=== PATIENT | female | born 1930 | race Caucasian/White ===

== ENCOUNTER 2016-09-23 07:58 | Inpatient (IN) | payer MEDICARE, OTHER ==
[~2016-09-23] VITALS: Ht 162.6 cm; Wt 67.8 kg
[2016-09-23] VITALS (16 sets, daily range): BP systolic 136–180; BP diastolic 63–96; PULSE 62–81; RESP 15–26; O2SAT 94–97
--- NOTE | 2016-09-23 07:55 | ED.REPORT ---
HPI-Chest Pain 40 and Over Date of Service Sep 23, 2016 ED Provider: Dr. Cao An 86 year old female with a history of PR, HTN and atrial fibrillation presents to the ED via EMS complaining of chest pain onset earlier this morning. Per EMS, the patient has had chest pain consistent with PR, but no sign of stents. The patient reports that pain is easing. She had a PR in 2014 which was not found until a week after the incident, so there is no cap. She reports that she is on Savaysa medication. The patient reports that morphine causes nausea. She weighs about 140 pounds. Nursing Notes Stated Complaint: CHEST DISCOMFORT Nursing Notes Reviewed: Yes Allergies: Coded Allergies: morphine (Verified Adverse Reaction, Intermediate, Nausea,Vomiting, ) Pt becomes very nauseaus and vomits. amiodarone (Verified Adverse Reaction, Unknown, 07/16/15) Pt states she "didn't feel right," when taking Amiodarone. Scheduled Dabigatran Etexilate Mesylate (Pradaxa) 150 Mg Capsule 150 MG PO BID Hydrochlorothiazide (Hydrochlorothiazide) 25 Mg Tablet 25 MG PO DAILY Lisinopril (Lisinopril) 20 Mg Tablet 60 MG PO DAILY Bellevue-3 Fatty Acids (Fish Oil) 300 Mg Capsule Unknown Dose PO DAILY Simvastatin (Simvastatin) 40 Mg Tablet 20 MG PO HS Vit C/Vit E/Lutein/Min/Bellevue-3 (Ocuvite Softgel) 1 Each Capsule 1 EACH PO DAILY General Time Seen by MD: 07:58 Chief Complaint Chest pain Hx Obtained From: Patient, EMS Arrived By: Ambulance Sudden in Onset?: Yes Onset Occurred: Onset unknown Symptom Duration: Since onset Severity: Current: Moderate Severity: Maximum: Moderate Recent Healthcare: No recent doctor visit Similar Sx Previous: Yes Past Medical History Past Medical History Is DNR, but would like to have heart catheterization if necessary. H/o seizure disorder PR in 2014 Reports: Coronary artery disease, Hyperlipidemia, Hypertension Reports: Atrial fibrillation Past Surgical History Cath 5 years ago and has 90% right coronary lesion Smoking History Former Smoker Social History Drug Use: Denies drug use Review of Systems Constitutional: Denies: Fever Respiratory: Denies: Prod cough, clear Cardiovascular: Reports: Chest pain Complete sys rev & neg: except as marked. Physical Exam Initial Vital Signs Vital Signs (First) Date Time Temp Pulse Resp B/P Pulse Ox O2 Delivery O2 Flow Rate FiO2 09/23/16 08:04 62 26 169/87 96 Room Air 09/23/16 08:46 36.8 2 Initial VS: Reviewed General/Constitutional: Awake, Alert Patient is in acute distress but is able to give full history. Respiratory / Chest: Atraumatic, Breath sounds NL, Breath sounds = bilat, No respiratory distress, No rales, No rhonchi, No wheezing Heart is irregular. Good capilalry refill, but no palpable peripheral pulses. Abdomen: Atraumatic, No guarding, No rebound Neck: Atraumatic, Full range of motion Lower Extremity / Pelvis / MS: Atraumatic, Full range of motion Patient is pale and diaphoretic. Neurologic: Oriented X3, Speech NL Head / Eyes: Atraumatic, Normocephalic ENT: Atraumatic, Airway patent Upper Extremity / MS: Atraumatic, Full range of motion Wrist / Hand: Atraumatic, Full range of motion Interpretation & Diagnostics Lab Results Interpretation Result Diagram: 09/23/16 0755 09/23/16 0755 Test 09/23/16 07:55 White Blood Count 8.0th/mm3 (3.8-10.1) Red Blood Count 5.42mil/mm3 (3.90-5.20) Hemoglobin 16.3g/dL (12.0-15.6) Hematocrit 48.9% (35.0-46.0) Mean Corpuscular Volume 90.2fL (81-100) Mean Corpuscular Hemoglobin 30.1pg (27.0-35.0) Mean Corpuscular Hemoglobin Concent 33.3% (32.0-37.0) Red Cell Distribution Width 13.1% (12.3-15.4) Platelet Count 224bil/L (150-400) Neutrophils (%) (Auto) 44.7% (40-74) Lymphocytes (%) (Auto) 41.8% (14-46) Monocytes (%) (Auto) 11.6% (4-12) Eosinophils (%) (Auto) 1.4% (0-5) Basophils (%) (Auto) 0.4% (0-3) Sodium Level 138mEq/L (134-144) Potassium Level 3.6mEq/L (3.5-5.2) Chloride Level 98mEq/L (97-108) Carbon Dioxide Level 22mmol/L (18-29) Blood Urea Nitrogen 14mg/dL (8-27) Creatinine 0.78mg/dL (0.57-1.00) Estimat Glomerular Filtration Rate 101mL/min (>59) Glucose Level 119mg/dL (60-99) Calcium Level 9.6mg/dL (8.5-10.1) Magnesium Level 2.0mg/dL (1.6-2.6) Total Bilirubin 1.1mg/dL (0.0-1.2) Aspartate Amino Transf (AST/SGOT) 34U/L (0-50) Alanine Aminotransferase (ALT/SGPT) 27U/L (0-32) Alkaline Phosphatase 100U/L (25-165) Troponin T 0.010ug/L (0.0-0.011) Pro-B-Type Natriuretic Peptide 1892pg/mL (0-738) Total Protein 7.6g/dL (6.4-8.4) Albumin 4.4g/dL (3.4-5.0) ECG Interpretation ECG Interpretation: Rate is 58. Fibrillation, ST depression, is improved after. Time: 08:15 Interpreted by: ED physician ECG Interpretation: Worsening anterior lateral ischemia. Atrio fibrillation. Rate is 60. Time: 09:07 Interpreted by: ED physician ECG Interpretation: Rate is 79. Atrial fibrillation. Progressive ST depression. Now with ST elevation. Time: 10:40 Interpreted by: ED physician X-Ray Chest Interpretation Chest Xray Interpretation: IMPRESSION: No acute cardiopulmonary disease process. Dictated by: Gisell Sánchez MD, PhD on 09/23/2016 at 9:56 Approved by: Gisell Sánchez MD, PhD on 09/23/2016 at 9:57 View: Portable, 1 view Interpretation / Wet Read by: Interpret - Radiologist Re-Eval/Medical Decision Med Decision/Clinical Course 86-year-old woman presents with acute chest pain onset 7 AM. Three-vessel disease. Chronic atrial fibrillation and on one of the newer anticoagulants, savaysa, which is a relative contraindication to heart catheterization. Last dose of the medication was yesterday morning. Presents with acute ischemic changes laterally initially improves with nitroglycerin then continues to worsen. In consultation with Dr. Ortiz initially opted for medical management but with aggressive increases in nitroglycerin her pain continued to worsen. At this point risks of not taking her to the Trauma [facility] outweigh the risks of bleeding due to oral medications. Patient is DO NOT RESUSCITATE however would clearly want to go to Trauma Manager. Even in Trauma [facility] she was very clear that she would not want chest compressions done and if her heart were to stop she would want to be allowed to naturally Source of Hx: Old records, EMS Time of Eval: 08:12 Re-Evaluation/Progress Note: Rechecked patient. Evaluated medic EKG that reveals rate of 62, atrial flutter, ST depression anterioerily which is signifigantly worse when compared to June ECG. Time of Eval: 08:34 Re-Evaluation/Progress Note: Rechecked the patient who reports pain in right shoulder and right side of back. Explained test results and plan to see diffusion operator. Patient understands and agrees with the plan. Time of Eval: 09:11 Re-Evaluation/Progress Note: Rechecked patient and evaluated new ECG. The patient is in more pain and is hypertensive. Patient reports that they are on savaysa medication, a contra catheterization indication Time of Eval: 09:50 Patient Status: Condition worsened Re-Evaluation/Progress Note: Chest pain continues to worsen despite increasing nitro drip and morphine. EKG changes continue to evolve. Dr Washington has reevaluated and now will be planning to take the patient to Trauma [facility]. Estimated time to lab is about 45 minutes. Consultation #1: Referral / Consult Name: Billy Navas MD Call Returned at: 08:13 Rpg Programmer Analyst: Will see patient, Agrees with eval, Agrees with plan Note: Discussed patient case with Dr. Navas who lien see the patient. Consultation #2: Referral / Consult Name: Billy Navas MD Call Returned at: 09:07 Note: Discussed patient case with Dr. Navas at bed side. Consultation #3: Referral / Consult Name: Jere Ruiz MD Call Returned at: 10:36 Rpg Programmer Analyst: Agrees with eval, Agrees with plan, Accepts admit Note: Discussed patient case with Dr. Bajwa who agrees to admit patient to ICU. Counseled Regarding: Diagnosis, Lab results Discharge & Departure Primary Impression: ACS (acute coronary syndrome) Disposition: ADMITTED TO HOSPITAL Discharge Condition All VS Reviewed: Yes Condition: Stable Referrals: oNrman Chow MD (PCP) Crit Care Except Billable Proc Time Spent: 30-74 minutes Services Performed: Patient management by me, Time spent at bedside, Reviewing test results, Reviewing imaging, Discussing patient care, Documentation in record, Time with fam/surrogate Scribe Attestation Portions of this note were transcribed by Chong Briseno. I, Dr. Cao, personally performed the history, physical exam, and medical decision-making: I reviewed and confirmed the accuracy for the information in the transcribed note. Signed by: yanely Silva, 09/23/16 1259. Meeta Cao MD Sep 23, 2016 07:55 Chong Briseno Sep 23, 2016 08:04
[~2016-09-23 07:58] MED LIST: DABI150C PO; HYDR25TA4 PO; LISI-567 PO; OMEG300C3 PO; SIMV40TA5 PO; VIT1CAPS8 PO
[2016-09-23] MEDS ORDERED: Nitroglycerin 50 mg/250 mL D5W 50,000 MCG in IV Premix 1 EACH IV ONE (08:01)
[2016-09-23] MEDS ORDERED: Heparin 5,000 Unit/mL Inj IVPUSH ONE (08:05)
[2016-09-23] MEDS ORDERED: Ondansetron 2 mg/mL 2 mL Inj IVPUSH ONE ×2 (08:05→10:00)
[2016-09-23] MEDS ORDERED: Heparin 25K Unit/500mL 0.45 NS 25,000 UNIT in IV Premix 1 EACH IV ONE (08:05)
[2016-09-23 08:18] LABS: BASOPHILS % (AUTO) 0.4 % (0-3); EOSINOPHILS % (AUTO) 1.4 % (0-5); MONOCYTES % (AUTO) 11.6 % (4-12); Mean Corpuscular Hemoglobin 30.1 pg (27.0-35.0); Mean Corpuscular Volume 90.2 fL (81-100); NEUTROPHILS % (AUTO) 44.7 % (40-74); Platelet Count 224 bil/L (150-400)
[2016-09-23 08:39] LABS: TROPONIN T 0.01 ug/L (0.0-0.011)
[2016-09-23] MEDS ORDERED: hydrALAZINE 20 mg/mL Inj ONE (09:29)
--- NOTE | 2016-09-23 09:58 | DRSVH ---
PROCEDURE: X-RAY CHEST ONE VIEW, PORTABLE ([id number]) INDICATIONS: chest pain TECHNIQUE: One view of the chest was acquired. COMPARISON: [facility], CR, XR CHEST 1VW (PORTABLE), 07/14/2015, 22:41. FINDINGS: Surgical changes and devices: None. Lungs and pleura: No pleural effusions or pneumothorax. Lungs are clear. Mediastinum: Mediastinal contours appear normal. Heart size is normal. Bones and chest wall: No suspicious bony lesions. Overlying soft tissues appear unremarkable. IMPRESSION: No acute cardiopulmonary disease process. Dictated by: Gisell Sánchez MD, PhD on 09/23/2016 at 9:56 Approved by: Gisell Sánchez MD, PhD on 09/23/2016 at 9:57
[2016-09-23] MEDS ORDERED: Heparin 1,000 Units/500 mL NS Premix IV ONE (10:26)
[2016-09-23] MEDS ORDERED: Nitroglycerin 50,000 mcg/250 mL D5W Premix IV ONE (10:26)
[2016-09-23] MEDS ORDERED: 0.9% Sodium Chloride 2,000 ML ONE (10:26)
[2016-09-23] MEDS ORDERED: Heparin 1,000 Unit/mL 10 mL Inj ONE ×2 (10:26→10:27)
[2016-09-23] MEDS ORDERED: fentaNYL-PF 50 mCg/mL 2 mL Inj ONE (11:16)
[2016-09-23] MEDS ORDERED: MetoCLOpramide 5 mg/mL 2 mL Inj ONE (11:21)
--- NOTE | 2016-09-23 11:35 | CONS ---
[address] [address] CONSULTATION REPORT PATIENT: JOSIANE CHRISTENSEN : 1930 MR#: [id number] ADMIT: 09/23/2016 JOB ID: [id number] DATE OF SERVICE: 09/23/2016 REQUESTING PHYSICIAN: Meeta Cao MD REASON FOR EVALUATION: Chest discomfort. HISTORY: The patient is an 86-year-old lady with history of hypertension, hypercholesterolemia, and prior smoker. She has documented coronary artery disease dating back to 2009 when she presented with [id number] myocardial infarction. She underwent cardiac catheterization by Dr. Joya on January 17, 2010. It demonstrated severe three-vessel coronary artery disease. She has been managed conservatively by Dr. Joya. The patient has chronic shoulder pain. It has gotten worse since last May. She received a steroid injection to her left shoulder at [facility] last year. She was in her usual state of health until this morning when she woke up around 7:05 a.m. She developed severe pain across her chest. She rated it 9/10. It was a pressure aching type. Her shoulder pain also got worse. It was associated with nausea, diaphoresis, and dizziness. Medics brought her to the hospital. She received aspirin, morphine, nitroglycerin, and IV heparin. Beta miguel was not given due to bradycardia. She is still having ongoing chest discomfort about 7/10. PAST MEDICAL HISTORY: 1. Coronary artery disease as outlined above. 2. Chronic atrial fibrillation for six years. 3. Obstructive sleep apnea, she is unable to tolerate CPAP. 4. History of seizure disorder. 5. Macular degeneration. PAST SURGICAL HISTORY: 1. Left ankle fracture. 2. Tonsillectomy. CURRENT MEDICATIONS: 1. Hydrochlorothiazide 25 mg daily. 2. Lisinopril 20 mg, three tablets daily. 3. Savaysa (edoxaban) [address] Joya started her on this medication last April by switching her from Pradaxa. 4. Simvastatin 40 mg, 1/2 tablet daily. 5. Fish oil. ALLERGIES: Amiodarone. SOCIAL HISTORY: She is a . She lives in a condo by herself. She denies alcohol. She used to smoke very little, about 2-3 cigarettes a day. One pack of cigarettes would last her for a week. However, she used to live with a person who was a heavy smoker for 50 years. FAMILY HISTORY: Her father at age 55 from heart attack. REVIEW OF SYSTEMS: All 10 systems are reviewed and noncontributory beside from outlined above. PHYSICAL EXAMINATION: Reveals an elderly lady, appears uncomfortable. Temperature is 36.8. Blood pressure is 169/87. Pulse 54. Head and face have normal configuration. Anicteric sclerae. Dry mucosa. Arcus senilis. Neck is supple. No jugular venous distention or carotid bruits. Chest: Normal expansion. Lungs are clear to auscultation. Heart: The first heart sound is variable. Second heart sound is normal. No murmur. Abdomen is soft, nontender. Extremities: No clubbing, cyanosis, or edema. Peripheral pulses are equal bilaterally. Neurologic: Grossly intact. DIAGNOSTIC STUDIES: EKG showed atrial fibrillation. Right bundle branch block. Anterolateral ST depression. BLOOD TESTS: Show hemoglobin 16.3, WBC 8.0, platelets 224. Sodium 138, potassium 3.5, chloride 98, bicarb 22, BUN 14, creatinine 0.78, glucose 119. AST 34. Troponin 0.01. ProBNP 1892. IMPRESSION: 1. Acute coronary syndrome. 2. Known severe three-vessel coronary artery disease. 3. Chronic atrial fibrillation, on chronic anticoagulation. 4. Obstructive sleep apnea, untreated. 5. Hypertension. 6. Hypercholesterolemia. PLAN: I have personally review her coronary angiogram from 2009. It appears that she has severe three-vessel coronary artery disease in the left anterior descending , diagonal branch, circumflex and right coronary artery. The left coronary system vessel size is quite small. However, the right coronary artery is suitable for percutaneous coronary intervention. I have initially tried to manage her medically in order to avoid performing heart catheterization while she received edoxaban. However, despite trying to get her blood pressure under control with hydralazine, nitroglycerin and morphine, the patient continued to have chest discomfort with worsening lateral ST depression. I discussed with the patient regarding undergoing urgent coronary angiogram with the risk of bleeding. She understands and agrees to proceed with the procedure. NEELAM
[2016-09-23] MEDS ORDERED: EDOX60TA PO (14:43)
--- NOTE | 2016-09-23 15:30 | NUR ---
Post cardiac cath patient returned from [facility] via stretcher. Report received from Lory OLSEN RN. Pt alert and oriented. Baseline vital taken and charted. Instructed pt must remain on bedrest till 1630 per Lory's RN report. Pt verbalized understanding. Pt denies chest pain or nausea. However stating having a 4/10 right shoulder pain refusing intervention at this time stating being at baseline. Clear dressing to right femoral site show no signs of hematoma however small amount of sanguineous drainage noted. baseline per Lory's report. Right pedal pulse strong, pt denies numbness or tingling.
[2016-09-23] MEDS ORDERED: Atropine 1 mg/10 mL (Code) Syringe IVPUSH PRN (15:45)
[2016-09-23] MEDS ORDERED: 0.9% Sodium Chloride 1,000 ML IV ONE (15:45)
[2016-09-23] MEDS ORDERED: Ondansetron 2 mg/mL 2 mL Inj IVPUSH PRN (15:45)
[2016-09-23] MEDS ORDERED: 0.9% Sodium Chloride 250 ML BOLUS IV PRN (15:45)
[2016-09-23] MEDS ORDERED: Sodium Chloride LOK Flush 10 mL Syringe IVFLUSH PRN (15:45)
--- NOTE | 2016-09-23 16:49 | DI95 ---
[address] [address] INTERVENTIONAL CARDIAC CATHETERIZATION PATIENT: JOSIANE CHRISTENSEN : 1930 MR#: [id number] ADMIT: 09/23/2016 JOB ID: [id number] CORRECTED REPORT DATE OF PROCEDURE: 09/23/2016 PATIENT PROFILE: The patient is an 86-year-old lady with history of hypertension, hypercholesterolemia, and prior smoker. She presented with acute coronary syndrome. PROCEDURE: 1. Retrograde left heart catheterization. 2. Selective coronary angiography. 3. Unsuccessful attempt angioplasty to the occluded mid circumflex artery. 4. Balloon angioplasty to the mid right coronary artery. 5. Left ventricular angiogram. 6. Vascular closure device: StarClose. COMPLICATION: None. METHOD: Retrograde left heart catheterization was performed from the right groin under 1% lidocaine local anesthesia using a 6-Northern Irish sheath. Selective coronary angiogram was performed in multiple projections, including cranial and caudal angulations with hand injected contrast via JL4 and 3DRC catheters. Heparin 100 units/kg was given. A 6-Northern Irish JL4 guide was advanced to the left coronary ostium. A Runthrough wire was used to cross the occluded mid circumflex artery. An attempt to cross this lesion with a Trek 2.0 mm balloon and a Sprinter 1.25 mm balloon was unsuccessful. The attention was then turned to the right coronary artery lesion. A 6-Northern Irish 3DRC guide was advanced to the right coronary ostium. A Runthrough wire was placed inside the right coronary artery. The mid right coronary artery lesion was then dilated with a 1.25 and a 2.0 mm balloon. An attempt to advance a Xience 2.25 x 23 mm stent to the lesion was unsuccessful due to heavily calcified lesion. Since the patient already has TONY-3 flow, the procedure was then terminated. A 5-Northern Irish angulated pigtail catheter was advanced to the left ventricle and left ventricular angiogram was performed in the 30-degree WORKMAN view by injecting contrast at the rate of 10 cc/second for 3 seconds. This catheter was withdrawn. Right femoral angiogram was performed. Upon sheath removal, hemostasis was achieved by using a StarClose device. The patient tolerated procedure well. She was transferred to [facility] in good condition. TOTAL CONTRAST USED: 100 cc. Fluoro time: 5 minutes. Total radiation dose: 337 milligray. RESULTS: 1. Selective coronary angiogram: a. The coronary arteries are heavily calcified. b. The left main coronary artery has minor 10% stenosis. c. The left anterior descending artery is transapical and has minor irregularity of 10% to 20% stenosis in the proximal portion and 60% stenosis in the distal mid portion. The major diagonal branch has multiple 70% to 80% stenosis. d. The circumflex artery is occluded in the mid portion distal to the takeoff of the second obtuse marginal branch. The first obtuse marginal branch has 60% stenosis in the proximal portion. The second obtuse marginal branch has minor irregularity. e. The dominant right coronary artery has critical 98% stenosis in the mid portion. There is a long diffuse 60% stenosis throughout the mid portion. The right posterior descending branch has multiple 85% to 95% stenosis. The right posterolateral branch has 80% stenosis. 2. Unsuccessful attempted balloon angioplasty to the occluded mid circumflex artery due to heavily calcified lesion. 3. Balloon angioplasty was performed to the critical mid right coronary artery lesion to achieve a good angiographic result with TONY-3 flow distally. There is residual 20% to 30% stenosis. 4. Left ventricular angiogram demonstrated near-normal left ventricular systolic function (visually estimated ejection fraction 60%). The basal 3rd of the inferior wall is severely hypokinetic. There is 3+ mitral regurgitation. 5. There is no gradient across the aortic valve on catheter withdrawal. 6. Aortic pressure is 158/72 mmHg. Left ventricular pressure is 157/2 mmHg. 7. Left ventricular end-diastolic pressure is 18 mmHg. CONCLUSION: 1. Diffuse severe three-vessel coronary artery disease with heavily calcification. Her coronary artery size is quite small. 2. Occluded mid circumflex artery. 3. Critical 98% stenosis of the mid right coronary artery. This was successfully treated with balloon angioplasty. 4. Left ventricular ejection fraction 60% with basal third of inferior wall severely hypokinetic. 5. 3+ mitral regurgitation. 6. LVEDP is 18 mmHg. Corrected by GS 11/14/16 at 8:11am DOS. MTDD
--- NOTE | 2016-09-23 17:40 | NUR ---
Vtach pt had 12 beats of Vtach at about 1735. Dr Tejeda made aware, MD stating was in the room while it happened, pt asymptomatic. Ongoing care.
[2016-09-23] MEDS ORDERED: OMEG10005 PO (18:12)
--- NOTE | 2016-09-23 21:13 | PCM.HPMED ---
Subjective Date of Service Sep 23, 2016 Primary Provider: Admitting Physician: Jere Ruiz MD Primary Care Physician: Norman Chow MD Attending Physician: Jere Ruiz MD Admit Status: From the Emergency Department Chief Complaint: Chest pressure, diaphoresis and nausea History of Present Illness: 86yoF with known CAD with history of MS in 2009 with cardiac cath and medical management only as well as paroxysmal atrial fibrillation on novel anticoagulation Savaysa presents with new onset chest pressure with associated diaphoresis and nausea beginning in the 7a.m. the patient was seen today after she was taken to the medical laboratory technologist by cardiology and had a balloon angioplasty to her RCA. The patient is currently DO NOT RESUSCITATE DO NOT INTUBATE and not likely a coronary artery bypass graft candidate. The patient states that she attempted walking yesterday but returned home after approximately one block due to her chest not feeling right. She reports recent shortness of breath on exertion. She states she also has a cough and runny nose but is otherwise free of fever or chills sore throat or sputum. Review of Systems: a comprehensive review of systems was completed and all are negative except for what is included in the HPI Allergies Coded Allergies: morphine (Verified Adverse Reaction, Intermediate, Nausea,Vomiting, ) Pt becomes very nauseaus and vomits. amiodarone (Verified Adverse Reaction, Unknown, 07/16/15) Pt states she "didn't feel right," when taking Amiodarone. Home Medications Hydrochlorothiazide (Hydrochlorothiazide) 25 Mg Tablet 25 MG PO DAILY Lisinopril (Lisinopril) 20 Mg Tablet 60 MG PO DAILY [place]-3 Fatty Acids (Fish Oil) 300 Mg Capsule Unknown Dose PO DAILY Simvastatin (Simvastatin) 40 Mg Tablet 20 MG PO HS EDOxaban (Savaysa) 60 MG PO daily PMH 1. CAD. 2. Paroxysmal atrial fibrillation, currently on pradaxa. 3. Hypertension. 4. History of seizure. 5. Osteoporosis. 6. Glaucoma. Surgical History 1. Tonsillectomy. 2. Bilateral ankle repair. 3. Tubal ligation 4. Cardiac cath without stent placement in 2009 Family History father at age 55 secondary to heart attack. mother at age 84 secondary to kidney failure. 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 Hx Alcohol Use: No Hx Substance Use: No Hx Tobacco Use: No Smoking Status: Former Smoker Living Arrangement: Alone Exam Vital Signs Vital Sign - Last Date Time Temp Pulse Resp B/P Pulse Ox O2 Delivery O2 Flow Rate FiO2 09/23/16 19:40 36.5 72 17 139/76 96 Room Air 09/23/16 13:15 2.00 Exam Gen.: Alert and oriented elderly female lying in bed in no acute distress Eyes: Pupils equal round reactive to light, extraocular motion intact, anicteric sclera HENT: Normocephalic atraumatic, moist mucous membranes, mild postnasal drip noted in pharynx Neck: Supple, trachea midline, no notable JVD or adenopathy Cardiovascular: Irregularly irregular rhythm noted, systolic murmur noted at the apex consistent with mitral regurg, patient had a run of 12 beats of V. tach while in the room asymptomatic Lungs: Clear to auscultation bilaterally without wheezing rale or rhonchi Abdomen: Soft normoactive bowel sounds nontender to palpation no organomegaly Extremities: No cyanosis clubbing or edema, pulses intact bilaterally. Radial and dorsalis pedis, right femoral cardiac cath site with Tegaderm overlying liquid blood : no Siddiqui in place Neuro: Cranial nerves II through XII intact with no focal neurologic deficit noted MSK: Moves all extremities spontaneously Psych: Normal mood and affect Lab and Diagnostics Result Diagram: 09/23/16 0755 09/23/16 0755 Additional Diagnostics: RESULTS: 1. Selective coronary angiogram: a. The coronary arteries are heavily calcified. b. The left main coronary artery has minor 10% stenosis. c. The left anterior descending artery is transapical and has minor irregularity of 10% to 20% stenosis in the proximal portion and 60% stenosis in the distal mid portion. The major diagonal branch has multiple 70% to 80% stenosis. d. The circumflex artery is occluded in the mid portion distal to the takeoff of the second obtuse marginal branch. The first obtuse marginal branch has 60% stenosis in the proximal portion. The second obtuse marginal branch has minor irregularity. e. The dominant right coronary artery has critical 98% stenosis in the mid portion. There is a long diffuse 60% stenosis throughout the mid portion. The right posterior descending branch has multiple 85% to 95% stenosis. The right posterolateral branch has 80% stenosis. 2. Unsuccessful attempted balloon angioplasty to the occluded mid circumflex artery due to heavily calcified lesion. 3. Balloon angioplasty was performed to the critical mid right coronary artery lesion to achieve a good angiographic result with TONY-3 flow distally. There is residual 20% to 30% stenosis. 4. Left ventricular angiogram demonstrated near-normal left ventricular systolic function (visually estimated ejection fraction 60%). The basal 3rd of the inferior wall is severely hypokinetic. There is 3+ mitral regurgitation. 5. There is no gradient across the aortic valve on catheter withdrawal. 6. Aortic pressure is 158/72 mmHg. Left ventricular pressure is 157/2 mmHg. 7. Left ventricular end-diastolic pressure is 18 mmHg. CONCLUSION: 1. Diffuse severe three-vessel coronary artery disease with heavily calcification. Her coronary artery size is quite small. 2. Occluded mid circumflex artery. 3. Critical 98% stenosis of the mid right coronary artery. This was successfully treated with balloon angioplasty. 4. Left ventricular ejection fraction 60% with basal third of inferior wall severely hypokinetic. 5. 3+ mitral regurgitation. 6. LVEDP is 18 mmHg. Billy Navas MD 09/23/16 1221 Assessment & Plan 86yoF with known CAD with history of MS in 2010 with cardiac cath and medical management only as well as paroxysmal atrial fibrillation on novel anticoagulation Katarina presents with new onset chest pressure with associated diaphoresis and nausea beginning in the 7a.m. 09/23 1. acute coronary syndrome, present on admission, treated - known three vessel disease including left anterior descending, diagonal branch, circumflex and right coronary artery from cardiac cath due to NSTEMI in 2009 under medical management - The patient was monitored in the ED with 4 separate EKG readings with evolution of ST depression in lateral precordial leads noted on final EKG prior to cardiac catheterization - Initial troponin prior to cardiac catheterization negative - Critical 98% stenosis of the mid right coronary artery. Balloon angioplasty was performed to the critical mid right coronary artery lesion to achieve a good angiographic result with TONY-3 flow distally. There is residual 20% to 30 % stenosis in the RCA. - Unsuccessful attempted balloon angioplasty to the occluded mid circumflex artery due to heavily calcified lesion. - Left ventricular angiogram demonstrated near-normal left ventricular systolic function (visually estimated ejection fraction 60%). The basal 3rd of the inferior wall is severely hypokinetic. There is 3+ mitral regurgitation. - will continue medical management with baby aspirin and plavix ordered per cardiology - continue nitroglycerin gtt per cardiology - cardiology following appreciate time and recommendations 2. Chronic atrial fibrillation, on chronic anticoagulation, present on admission - will continue outpatient Savaysa 60mg daily starting 09/24 - weight patient for 60kg cutoff for 30mg daily dosing in the future 3. Hypertension, present on admission, chronic - continue outpatient Lisinopril and HCTZ 09/24 4. Hypercholesterolemia, present on admission chronic - will continue outpatient simvastatin on 09/24 5. 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 - patient is on oxycodone 5mg as outpatient will continue - patient reports previous PT and steroid injection improved pain and function - consider ortho consult, MRI imaging for rotator cuff pathology DVT prophylaxis Anticoagulated on Savaysa GI prophylaxis : not indicated at this time Bowel regemin with Docusate and Senna PRN Disposition: likely home tomorrow pending no further acute events overnight and PT evaluation for placement Pain Evaluation: Adequate Pain Control GI Prophylaxis: Not indicated VTE Prophylaxis Indicated: Meets Criteria for Anticoag Therapy VTE Prophylaxis: Other (anticoagulated on Savaysa) Resuscitation Status: DNR/DNI:Do Not Resuscitate/Intubate Limited Interventions: Medications and IV Fluid Attending Statement The patient was seen and examined together with Dr. Tejeda on 09/23/2016 and I agree with the history, exam and plan as outlined in the note above. . Franklyn Tejeda DO Sep 23, 2016 21:13 Jere Ruiz MD Sep 24, 2016 07:44
[2016-09-23] MEDS ORDERED: Senna-Docusate 8.6-50 mg Tablet PO ONE (21:45)
[2016-09-24] VITALS (9 sets, daily range): BP systolic 128–164; BP diastolic 67–92; PULSE 73–86; RESP 14–22; O2SAT 89–96
[2016-09-24 03:55] LABS: Mean Corpuscular Volume 89.5 fL (81-100)
--- NOTE | 2016-09-24 05:32 | NUR ---
P: increase coughing causing dyspnea I: increase HOB, hydrochlorothiazide and zestril AM doses given at 0530 per E: Drowsy, oriented. "I am weak and tired". Increase moist loose cough through night. c/o dyspnea. Expiratory wheezing throughout. Notified Dr. Harvey who request to give AM doses of hydrochlorothiazide and zestril. Pulling pt up in bed and increasing HOB helpful for cough. Pt states chest discomfort w/ exhalation. Intermittent R shoulder chronic pain. Tylenol given earlier. 2L NC placed for sleep apnea and RA sats drop to 89%. Sats on 2L NC in the mid 90s. Intermittently sleeping. R groin capillary oozing forming a small hematoma. Manual pressure held for 10-15 minutes reducing hematoma and no further capillary oozing. Addendum: 09/24/16 at 0555 by JAMA ADDISON RN Tele A flutter in the 70-80s. Elevated BP.
--- NOTE | 2016-09-24 10:14 | PROG NOTE ---
[address] [address] PROGRESS NOTE PATIENT: JOSIANE CHRISTENSEN : 1930 MR#: [id number] ADMIT: 09/23/2016 JOB ID: [id number] DATE: 09/24/2016 SUBJECTIVE: The patient is an 86 years old lady who presented with acute coronary syndrome yesterday. She underwent urgent coronary angiogram, which demonstrated severe triple-vessel coronary artery disease with occluded mid circumflex artery and critical 98% stenosis of the mid right coronary artery. She underwent successful balloon angioplasty to the mid right coronary artery. The patient reported that her chest discomfort has disappeared. However, she developed shortness of breath and dry cough. She feels more comfortable sitting up. She denies any fever or coughing up any phlegm. OBJECTIVE: Temperature is 36.7. Blood pressure is 160/82. Pulse 78. Body weight is 67.8 kg. Her body weight on admission is 64 kg. Neck: JVP is 4 cm. Head and face have normal configuration. Anicteric sclerae. Moist mucosa. Chest: Normal expansion. Lungs: Diminished breath sounds and few basilar rales at base. Heart: The first and second heart sounds are diminished. Grade 1/6 holosystolic murmur at the apex. Abdomen: Soft, nontender. Extremities: No clubbing, cyanosis, or edema. Right groin puncture site is excellent. Neurologic: Grossly intact. Blood tests show hemoglobin 15.2, WBC 14.1, platelets 215. Sodium 136, potassium 4.0, chloride 101, bicarb 19, BUN 15, creatinine 0.85, glucose 115. IMPRESSION: 1. Acute coronary syndrome. 2. Severe triple-vessel coronary artery disease, status post balloon angioplasty to the mid right coronary artery. 3. Volume overload. 4. Chronic atrial fibrillation. 5. Obstructive sleep apnea, untreated. 6. Hypertension. 7. Hypercholesterolemia. PLAN: She could resume Savaysa tonight. I will leave her on triple therapy with Savaysa, aspirin and clopidogrel for two weeks only, in view of her advanced age in order to reduce the risk of bleeding. She will be on a combination of Savaysa and Plavix for six months and after Plavix is discontinued she will be switched to baby aspirin. I will give her intravenous furosemide 20 mg twice daily to treat her volume overload. I will add carvedilol 6.25 mg b.i.d. to treat her ischemic heart disease and lower her blood pressure. MTDD
--- NOTE | 2016-09-24 10:40 | NUR ---
Evaluation completed. Please go to "Notes" then click on "Assessments and Notes" (bottom left corner of screen). Then select appropriate discipline tab on top of screen.
--- NOTE | 2016-09-24 11:04 | DRSVH ---
PROCEDURE: X-RAY CHEST ONE VIEW, PORTABLE ([id number]) INDICATIONS: POSSIBLE FLUID OVERLOAD TECHNIQUE: One view of the chest was acquired. COMPARISON: [facility], CR, XR CHEST 1VW (PORTABLE), 09/23/2016, 8:09. FINDINGS: Surgical changes and devices: None. Lungs and pleura: Mild edema is present and small basilar pleural effusions. No pneumothorax. Mediastinum: Mediastinal contours appear normal. Heart size is enlarged. Bones and chest wall: No suspicious bony lesions. Overlying soft tissues appear unremarkable. IMPRESSION: Mild edema and small effusions. Dictated by: Carlos oLpez [facility] Interpreted: Ryann Damon MD on 09/24/2016 at 11:03 Transcribed by: RACHELLE on 09/24/2016 at 11:03 Approved by: Ryann Damon M.D. on 09/26/2016 at 16:09
--- NOTE | 2016-09-24 11:40 | NUR ---
Social Work Note: Initial Assessment Data& Assessment: EMR reviewed. SW met with pt at bedside to discuss discharge planning, SW role explained. Barbara Moody is a 86 year old female admitted on 09/23/2016 for ACS. Pt has [employer] [place] Supplement and Medicare insurance coverage. Pt sees Norman Arenas MD for primary care. Pt lives in [place] at the [facility] in a one story home with no steps. Pt is independent and drives at baseline. Pt uses a [employer] for ambulation assistance. Pt does not have a HH or SNF hx. Pt does not have LTC insurance or VA benefits. Pt states she has completed DPOA/Advance Directive paperwork completed, SW requested a copy when possible. PT is recommending SNF at this time, however per MD in morning rounds, pt may be discharging in the next 1-2 days. SW explained to pt that Medicare requires a 3 Midnight hospitalization in order to qualify for SNF stay. SW provided SNF and Home Health list to review for preferences. SW to continue to follow for progression with PT and medical progression. Pt states one of her Children will be able to transport her home when medically ready. Pt denies any other needs at this time. SW to continue to follow. Plan: Anticipated discharge home via POV with home health vs. SNF pending length of hospitalization and if pt continues to meet criteria. SW provided SNF and Home Health list to review for preferences. Pt denies any other needs at this time. SW to continue to follow. SCOTT Young Addendum: 09/24/16 at 1146 by SHERI URBAN Amended: Links added. Addendum: 09/24/16 at 1357 by SHERI MURPHY SS Pt explained to SW that she does not anticipate being hospitalized for a total of 3 midnights and prefers to discharge back home with home health. Pt does not have a preference for which company and agreed to refer to the rotating calendar. Referral made to [facility] for PT, RN and HOSIERY PAIRER. Pt denies any other needs at this time. SW to continue to follow. SCOTT Young
[2016-09-24] MEDS: Furosemide 10 mg/mL 2 mL Inj IV SCH ×2 (12:09→21:05)
[2016-09-24] MEDS: Potassium Chloride 20 mEq SR Tablet PO SCH ×2 (12:10→17:53)
--- NOTE | 2016-09-24 13:49 | PCM.PNMED ---
Subjective Date of Service Sep 24, 2016 Subjective overnight: Patient had increased blood pressure with associated shortness of breath and wheezing overnight. The overnight doctor received a report that the patient had received 1 to 2 L of IV fluid in the cardiac cardiac cath rn. The doctor at that time decided the patient was most likely mildly fluid overloaded and initiated the patient's regular home medications lisinopril and hydrochlorothiazide 3 hours early. today: The patient states that since taking her medications she feels significantly better however not completely normal. She says that her shortness of breath and wheezing has improved but not back to baseline. She denies any fever or chills or any productive dark sputum while coughing. She states that she has only noticed the cough within the last couple weeks and denies the cough beginning when she started lisinopril. Exam Vital Signs Vital Sign - Last Date Time Temp Pulse Resp B/P Pulse Ox O2 Delivery O2 Flow Rate FiO2 09/24/16 07:02 36.7 78 14 160/82 95 Nasal Cannula 3.00 Intake and Output 09/23/16 09/23/16 09/24/16 Cumulative From/Thru 15:00 23:00 07:00 09/23/16 08:04 - 09/24/16 06:05 Intake Total 1128 ml 733 ml 1861 ml Output Total 250 ml 250 ml Balance 1128 ml 483 ml 1611 ml Intake Oral 400 ml 400 ml IV Total 1128 ml 333 ml 1461 ml Output Urine Total 250 ml 250 ml # Voids 2 2 # Bowel Movements 0 0 Exam Gen.: Alert and oriented elderly female lying in bed in no acute distress Eyes: Pupils equal round reactive to light, extraocular motion intact, anicteric sclera HENT: Normocephalic atraumatic, moist mucous membranes, mild postnasal drip noted in pharynx Neck: Supple, trachea midline, no notable JVD or adenopathy Cardiovascular: Irregularly irregular rhythm noted, systolic murmur noted at the apex consistent with mitral regurgitation Lungs: Decreased breath sounds bilaterally in the bases compared with previous exam worse in the right compared to left, mild crackles in the mid lung mcginnis with mild wheezing throughout all lung mcginnis worse in the upper. Abdomen: Soft normoactive bowel sounds nontender to palpation no organomegaly Extremities: Mild lower extremity edema worse in the left lower extremity compared to right, No cyanosis clubbing, pulses intact bilaterally. Radial and dorsalis pedis, right femoral cardiac cath site with Tegaderm overlying a clean folded gauze 4 x 4. : no Sididqui in place Neuro: Cranial nerves II through XII intact with no focal neurologic deficit noted MSK: Moves all extremities spontaneously Psych: Normal mood and affect Lab and Diagnostics Result Diagram: 09/24/1632909/[id number]/16329 Additional Diagnostics RESULTS: 1. Selective coronary angiogram: a. The coronary arteries are heavily calcified. b. The left main coronary artery has minor 10% stenosis. c. The left anterior descending artery is transapical and has minor irregularity of 10% to 20% stenosis in the proximal portion and 60% stenosis in the distal mid portion. The major diagonal branch has multiple 70% to 80% stenosis. d. The circumflex artery is occluded in the mid portion distal to the takeoff of the second obtuse marginal branch. The first obtuse marginal branch has 60% stenosis in the proximal portion. The second obtuse marginal branch has minor irregularity. e. The dominant right coronary artery has critical 98% stenosis in the mid portion. There is a long diffuse 60% stenosis throughout the mid portion. The right posterior descending branch has multiple 85% to 95% stenosis. The right posterolateral branch has 80% stenosis. 2. Unsuccessful attempted balloon angioplasty to the occluded mid circumflex artery due to heavily calcified lesion. 3. Balloon angioplasty was performed to the critical mid right coronary artery lesion to achieve a good angiographic result with TONY-3 flow distally. There is residual 20% to 30% stenosis. 4. Left ventricular angiogram demonstrated near-normal left ventricular systolic function (visually estimated ejection fraction 60%). The basal 3rd of the inferior wall is severely hypokinetic. There is 3+ mitral regurgitation. 5. There is no gradient across the aortic valve on catheter withdrawal. 6. Aortic pressure is 158/72 mmHg. Left ventricular pressure is 157/2 mmHg. 7. Left ventricular end-diastolic pressure is 18 mmHg. CONCLUSION: 1. Diffuse severe three-vessel coronary artery disease with heavily calcification. Her coronary artery size is quite small. 2. Occluded mid circumflex artery. 3. Critical 98% stenosis of the mid right coronary artery. This was successfully treated with balloon angioplasty. 4. Left ventricular ejection fraction 60% with basal third of inferior wall severely hypokinetic. 5. 3+ mitral regurgitation. 6. LVEDP is 18 mmHg. Lohavanichbutr, Kamol MD 09/23/16 1221 Assessment & Plan A pleasant 86-year-old female with known coronary artery disease with history of ND in 2010 with cardiac cath and medical management only as well as paroxysmal atrial fibrillation on novel anticoagulation Edoxaban presents with new onset chest pressure with associated diaphoresis and nausea beginning in the 7a.m. 09/23 taken to cardiac cardiac cath rn due to evolving ischemia noted in precordial lateral leads consistent with acute coronary syndrome. Hospital Day 2 1. acute on chronic diastolic heart failure, not present on admission, currently being treated - Report that patient received IV fluids yesterday per cardiac cardiac cath rn staff - Physical exam and xray imaging consistent with volume overload - intravenous furosemide 20 mg twice daily started by cardiology - re-evaluate tomorrow 2. Acute Coronary Syndrome, present on admission, Treated - known three vessel disease including left anterior descending, diagonal branch , circumflex and right coronary artery from cardiac cath due to NSTEMI in 2009 - The patient was monitored in the ED with 4 separate EKG readings with evolution of ST depression in lateral precordial leads noted on final EKG prior to cardiac catheterization - Initial troponin prior to cardiac catheterization negative - Critical 98% stenosis of the mid right coronary artery. Balloon angioplasty was performed to RCA with residual 20% to 30% stenosis in the RCA. - Unsuccessful attempted balloon angioplasty to the occluded mid circumflex artery due to heavily calcified lesion. - Left ventricular angiogram demonstrated with estimated ejection fraction 60% however inferior wall is severely hypokinetic. 3+ mitral regurgitation. - will continue medical management with baby aspirin and plavix ordered per cardiology - discontinue nitroglycerin gtt per cardiology - cardiology following appreciate time and recommendations - Plavix 75mg daily for six months then switch to aspirin 81mg daily for life - cardiology recommends adding carvedilol 6.25 mg twice daily to treat her ischemic heart disease and lower her blood pressure. 3. Chronic atrial fibrillation, on chronic anticoagulation, present on admission - Will continue outpatient Edoxaban 60mg daily starting 09/24 - Weight patient for 60kg cutoff for 30mg daily dosing in the future 4. Hypertension, present on admission, chronic stable - Continue outpatient Lisinopril and HCTZ 09/24 - cardiology recommends adding carvedilol 6.25 mg twice daily 5. Hypercholesterolemia, present on admission chronic stable - Will continue outpatient simvastatin on 09/24 6. 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 - patient previously on oxycodone 5mg as outpatient patient states that shoulder pain is improved at hospitalization - patient reports previous PT and steroid injection improved pain and function - consider ortho consult, MRI imaging for rotator cuff pathology DVT prophylaxis Anticoagulated on Edoxaban GI prophylaxis : Not indicated at this time Bowel regimen with Docusate and Senna PRN Disposition: likely home tomorrow pending no further acute events overnight and PT evaluation for placement GI Prophylaxis: Not indicated VTE Prophylaxis: Other Resuscitation Status: DNR/DNI:Do Not Resuscitate/Intubate Limited Interventions: Medications and IV Fluid Attending Statement The patient was seen and examined together with Dr. Tejeda on 09/24/2016 and I agree with the history, exam and plan as outlined in the note above. . Franklyn Tejeda DO Sep 24, 2016 07:43 Jere Ruiz MD Sep 26, 2016 14:50
[2016-09-24] MEDS: [UNRECOGNIZED DRUG - OTHER] PO SCH (15:15)
--- NOTE | 2016-09-24 18:04 | NUR ---
Respiratory Pt with anxiety and dyspnea/SOB this morning, SpO2 maintained mid 90s on 3L NC. rounded, ordered lasix 20mg IVP. 1400cc UOP via BSC today. At this time, pt states she feels much better, breathing is significantly improved. SpO2 97% on 1.5L NC. Cough is rare, and more dry, non productive. Appetite has improved, pt ate 100% of dinner.
[2016-09-25] VITALS (7 sets, daily range): BP systolic 112–139; BP diastolic 59–89; PULSE 59–73; RESP 14–18; O2SAT 93–98
[2016-09-25 04:45] LABS: Mean Corpuscular Volume 89.1 fL (81-100)
[2016-09-25 04:58] LABS: Magnesium 1.5 mg/dL (1.6-2.6); Phosphorus 3.3 mg/dL (2.5-4.9)
--- NOTE | 2016-09-25 05:34 | NUR ---
Respiratory Due to nasal cannula drying out pt's nares, pt requested to be RA through shift as tolerated; SpO2 92-95% RA while awake, but desaturated intermittently to 87% while asleep. Pt placed on 2L oxymask for HS. VSS. Pt reports feeling weak and fatigued, but states "I just need to get up and start moving around more." SBA to BSC.
[2016-09-25] MEDS ORDERED: Magnesium Sulf 4 Gm/100 mL H2O 4 GM in IV Premix 1 EACH IV ONE (06:55)
[2016-09-25] MEDS ORDERED: Calcium Carbonate (Oyster Shell) 500 mg Tablet PO ONE (06:55)
[2016-09-25] MEDS: Potassium Chloride 20 mEq SR Tablet PO SCH ×2 (07:37→17:20)
[2016-09-25] MEDS: Furosemide 10 mg/mL 2 mL Inj IV SCH ×2 (07:52→19:56)
[2016-09-25] MEDS: [UNRECOGNIZED DRUG - OTHER] PO SCH (07:58)
--- NOTE | 2016-09-25 09:12 | DRSVH ---
PROCEDURE: X-RAY CHEST ONE VIEW, PORTABLE ([id number]) INDICATIONS: volume overload TECHNIQUE: One view of the chest was acquired. COMPARISON: [facility], CR, XR CHEST 1VW (PORTABLE), 09/24/2016, 8:43. FINDINGS: Surgical changes and devices: None. Lungs and pleura: No pleural effusions or pneumothorax. Edema has diminished. Mediastinum: Mediastinal contours appear normal. Heart size is enlarged. Bones and chest wall: No suspicious bony lesions. Overlying soft tissues appear unremarkable. IMPRESSION: Decreasing edema. Dictated by: Carlos DIAZ Interpreted: Mary Huerta MD on 09/25/2016 at 9:11 Transcribed by: ITZEL on 09/25/2016 at 9:12 Approved by: Mary Huerta M.D. on 09/25/2016 at 16:32
[2016-09-25] MEDS ORDERED: Potassium Chloride 20 mEq SR Tablet PO ONE (10:45)
--- NOTE | 2016-09-25 11:12 | DRSVH ---
[facility] [address] [place] [address] Echocardiogram Report Name: JOSIANE CHRISTENSEN RStudy Date: 09/25/2016Height: 62 in Hospital Exam Location: [facility] Weight: 149 lb Gender: Female BSA: 1.7 m2 : 1930 Age: 86 yrs BP: 115/59 mmHg Referring Physician: MARGOT LEAL Interpretation Summary The left ventricle is normal in size. There is mildly increased wall thickness at the basal and mid levels with more hypertophy at the apical level. Consider Definity contrast to better delineate LV myocardium. Left ventricular systolic function is low normal. Left ventricular ejection fraction is estimated to be 55%, which has slightly decreased since prior study. There is hypokinesis of the basal inferior, basal to mid inferolateral, and basal anterolateral wall. LV wall motion abnormalities are new since prior study. Borderline right ventricular enlargement. Right ventricular systolic function is at the lower limits of normal which is unchanged since prior study. The right ventricular systolic pressure is estimated at 49 mmHg assuming a right atrial pressure of 15 mm Hg, which is unchanged since prior study. Both atria are severely dilated. There is moderate mitral regurgitation which is unchanged. There is moderate tricuspid regurgitation which has mildly decreased. There is no other significant valvular heart disease. The aortic root is normal size. Procedure: A two-dimensional transthoracic echocardiogram with color flow and Doppler was performed. The study quality was technically adequate. Comparison is made with the echocardiogram of 07/16/15. The patient was in atrial fibrillation with heart rates between 56-67 bpm during the exam. Left Ventricle: The left ventricle is normal in size. There is mildly increased wall thickness at the basal and mid levels with more severe hypertophy at the apical level. Consider Definity contrast to better delineate LV myocardium. Left ventricular systolic function is low normal. Left ventricular ejection fraction is estimated to be 55%. There is hypokinesis of the basal inferior, basal to mid inferolateral, and basal anterolateral wall. LV wall motion abnormalities are new since prior study. Diastolic function could not be accurately assessed due to atrial fibrillation. Right Ventricle: Borderline right ventricular enlargement. Right ventricular systolic function is at the lower limits of normal. Atria: Both atria are severely dilated. There is no Doppler evidence for an interatrial shunt. Mitral Valve: The mitral valve leaflets are mildly calcified. There is moderate mitral annular calcification. There is moderate mitral regurgitation. Aortic Valve: The aortic valve is trileaflet. The aortic valve is mildly calcified. Leaflet mobility is mild to moderately reduced. There is no hemodynamically significant valvular aortic stenosis. There is trace aortic regurgitation. Tricuspid Valve: The tricuspid valve leaflets are thickened and/or calcified, but open well. There is moderate tricuspid regurgitation. The right ventricular systolic pressure is estimated at 49 mmHg assuming a right atrial pressure of 15 mm Hg. Pulmonic Valve: The pulmonic valve is not well seen, but is grossly normal. There is mild pulmonic regurgitation. There is no other significant valvular heart disease. Great Vessels: The aortic root is normal size. The ascending aorta could not be visualized. The aortic arch could not be visualized. The pulmonary artery is not well visualized, but is probably normal size. The IVC is dilated (diameter is greater than 2.1 cm) and it collapses less than 50% with a sniff. This suggests a high right atrial pressure of 15 mm Hg. Pericardium/ Pleura There is no pericardial effusion. There is a small left -sided pleural effusion. MMode/2D Measurements & Calculations LVIDd: 4.4 cm RA long axis LVOT diam LVIDs: 3.3 cm LA A2 area: 32.3 cm FS: 24.9 % LA A4 area: 33.3 cm RA area Ao root diam IVSd: 1.1 cm LA length (vol): 7.2 cm : 3.2 cm LVPWd: 1.0 cm LA vol: 126.8 ml : 29.6 cm LA vol index RA vol : 104.ml RA IVC diam: 2.3 cm : 62.2 mm2 LV laird. diameter/BSA LV sys. diameter/BSA RVD1 (basal) TAPSE: 1.5 cm (cm/m^2): 2.6 (cm/m^2): 1.9 Doppler Measurements & Calculations Ao V2 max MV E max grzegorz Med Peak E' Grzegorz TR max grzegorz : 108.6 cm/sec : 85.0 cm/sec : 288.2 cm/sec Ao max P.7 mmHg MR ERO: 0.15 cm2 E/E' med: 15.9 TR max PG Ao mean P.7 mmHg Lat Peak E' Grzegorz : 33.5 mmHg LVOT Max Grzegorz PA V2 max : 74.5 cm/sec E/E' lat: 14.7 : 61.8 cm/sec VANDA(I,D): 1.9 cm E/e' average: 15.3 PA mean PG sev ratio: 0.63 : 0.86 mmHg Ao V2 mean LV V1 max PG MR flow rate PA V2 mean : 78.9 cm/sec : 44.7 cm/sec Ao V2 VTI: 23.5 cm LV V1 VTI : 76.9 cm3/sec PA pr(Accel) : 14.8 cm MR PISA radius : 54.1 mmHg VANDA(V,D): 2.1 cm2 VANDA indexed to BSA (cm^2/m^2): 1.1 Reading Physician:PAOLA
--- NOTE | 2016-09-25 11:41 | PCM.PNMED ---
Subjective Date of Service Sep 25, 2016 Subjective overnight: no acute events today: Patient feels much better. She still feels weak and believes she would benefit from some rehabilitation after discharge from the hospital. She denies chest pain but states that her chronic shoulder pain is back. Exam Vital Signs Vital Sign - Last Date Time Temp Pulse Resp B/P Pulse Ox O2 Delivery O2 Flow Rate FiO2 09/25/16 04:32 37.0 59 16 126/89 98 OxyMask 2.00 Intake and Output 09/24/16 09/24/16 09/25/16 Cumulative From/Thru 15:00 23:00 07:00 09/23/16 08:04 - 09/25/16 06:16 Intake Total 500 ml 200 ml 2561 ml Output Total 1400 ml 600 ml 2250 ml Balance -900 ml -400 ml 311 ml Intake Oral 500 ml 200 ml 1100 ml IV Total 1461 ml Output Urine Total 1400 ml 600 ml 2250 ml # Voids 2 # Bowel Movements 0 Exam Gen.: Alert and oriented elderly female lying in bed in no acute distress Eyes: Pupils equal round reactive to light, extraocular motion intact, anicteric sclera HENT: Normocephalic atraumatic, moist mucous membranes, mild postnasal drip noted in pharynx Neck: Supple, trachea midline, no notable JVD or adenopathy Cardiovascular: Irregularly irregular rhythm noted, systolic murmur noted at the apex consistent with mitral regurgitation Lungs: improved air movement in all mcginnis compared to day prior mild crackles in the base lung mcginnis without wheezing throughout Abdomen: Soft normoactive bowel sounds nontender to palpation no organomegaly Extremities: no lower extremity edema, No cyanosis clubbing, pulses intact bilaterally. Radial and dorsalis pedis, right femoral cardiac cath site with Tegaderm overlying a clean folded gauze 4 x 4. : no Siddiqui in place Neuro: Cranial nerves II through XII intact with no focal neurologic deficit noted MSK: Moves all extremities spontaneously Psych: Normal mood and affect Lab and Diagnostics Result Diagram: 09/25/1640409/25/16404 Additional Diagnostics RESULTS: CONCLUSION: 1. Diffuse severe three-vessel coronary artery disease with heavily calcification. Her coronary artery size is quite small. 2. Occluded mid circumflex artery. 3. Critical 98% stenosis of the mid right coronary artery. This was successfully treated with balloon angioplasty. 4. Left ventricular ejection fraction 60% with basal third of inferior wall severely hypokinetic. 5. 3+ mitral regurgitation. 6. LVEDP is 18 mmHg. Billy Navas MD 09/23/16 1221 Echocardiogram Report Interpretation Summary The left ventricle is normal in size. There is mildly increased wall thickness at the basal and mid levels with more hypertophy at the apical level. Consider Definity contrast to better delineate LV myocardium. Left ventricular systolic function is low normal. Left ventricular ejection fraction is estimated to be 55%, which has slightly decreased since prior study. There is hypokinesis of the basal inferior, basal to mid inferolateral, and basal anterolateral wall. LV wall motion abnormalities are new since prior study. Borderline right ventricular enlargement. Right ventricular systolic function is at the lower limits of normal which is unchanged since prior study. The right ventricular systolic pressure is estimated at 49 mmHg assuming a right atrial pressure of 15 mm Hg, which is unchanged since prior study. Both atria are severely dilated. There is moderate mitral regurgitation which is unchanged. There is moderate tricuspid regurgitation which has mildly decreased. There is no other significant valvular heart disease. The aortic root is normal size. Reading Physician:PAOLA Assessment & Plan A pleasant 86-year-old female with known coronary artery disease with history of [place] in 2010 with cardiac cath and medical management only as well as paroxysmal atrial fibrillation on novel anticoagulation Edoxaban presents with new onset chest pressure with associated diaphoresis and nausea beginning in the 7a.m. 09/23 taken to cardiac cardiac catheterization technologist due to evolving ischemia noted in precordial lateral leads consistent with acute coronary syndrome. Hospital Day 2 1. acute on chronic diastolic heart failure, not present on admission, improved - Report that patient received a significant amount of IV fluid in the cardiac cardiac catheterization technologist - Physical exam and xray imaging the day after cath consistent with volume overload - intravenous furosemide 20 mg twice daily started by cardiology with two doses given, held 09/25 with HCTZ 25mg given instead - Echo today prior to HCTZ showed only a mild decreased ejection fraction compared to prior study consistent with mild fluid overload due to diastolic heart failure - Patient started on Carvedilol 6.25 BID converted to Carvedilol 3.125 BID due to bradycardia - re-evaluate tomorrow 2. Acute Coronary Syndrome, present on admission, Treated - known three vessel disease including left anterior descending, diagonal branch , circumflex and right coronary artery from cardiac cath due to NSTEMI in 2009 - The patient was monitored in the ED with 4 separate EKG readings with evolution of ST depression in lateral precordial leads noted on final EKG prior to cardiac catheterization - Initial troponin prior to cardiac catheterization negative - Critical 98% stenosis of the mid right coronary artery. Balloon angioplasty was performed to RCA with residual 20% to 30% stenosis in the RCA. - Unsuccessful attempted balloon angioplasty to the occluded mid circumflex artery due to heavily calcified lesion. - Left ventricular angiogram demonstrated with estimated ejection fraction 60% however inferior wall is severely hypokinetic. 3+ mitral regurgitation. - will continue medical management with baby aspirin and plavix ordered per cardiology - discontinue nitroglycerin gtt per cardiology - cardiology following appreciate time and recommendations - Plavix 75mg daily for six months then switch to aspirin 81mg daily for life - cardiology recommends adding carvedilol 6.25 mg twice daily to treat her ischemic heart disease and lower her blood pressure. converted to Carvedilol 3.125 BID due to bradycardia 3. Chronic atrial fibrillation, on chronic anticoagulation, present on admission - Will continue outpatient Edoxaban 60mg daily starting 09/24 - Weight patient for 60kg cutoff for 30mg daily dosing in the future 4. Hypertension, present on admission, chronic stable - Continue outpatient Lisinopril and HCTZ but decrease dosage of both given new Carvedilol - cardiology recommends adding carvedilol 6.25 mg twice daily converted to Carvedilol 3.125 BID due to bradycardia - Lisinopril 30mg daily and HCTZ 12.5mg daily 5. Hypercholesterolemia, present on admission chronic stable - Will continue outpatient simvastatin on 09/24 - lipid panel shows fairly well controlled 6. 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 - patient previously on oxycodone 5mg as outpatient patient states that shoulder pain is improved at hospitalization - patient reports previous PT and steroid injection improved pain and function - consider ortho consult, MRI imaging for rotator cuff pathology DVT prophylaxis Anticoagulated on Edoxaban GI prophylaxis : Not indicated at this time Bowel regimen with Docusate and Senna PRN Disposition: likely snf for rehab tomorrow pending no further acute events overnight and PT evaluation for placement currently also recommends SNF GI Prophylaxis: Not indicated VTE Prophylaxis: Other Resuscitation Status: DNR/DNI:Do Not Resuscitate/Intubate Limited Interventions: Medications and IV Fluid Attending Statement The patient was seen and examined together with Dr. Tejeda on 09/25/2016 and I agree with the history, exam and plan as outlined in the note above. . Franklyn Tejeda DO Sep 25, 2016 06:53 Jere Ruiz MD Sep 28, 2016 15:09
--- NOTE | 2016-09-25 13:01 | PROG NOTE ---
[address] [address] PROGRESS NOTE PATIENT: JOSIANE CHRISTENSEN : 1930 MR#: [id number] ADMIT: 09/23/2016 JOB ID: [id number] DATE: 09/25/2016 SUBJECTIVE: The patient reports feeling a lot better than yesterday. Her breathing is better and almost back to her normal self. She is able to get up and walk around. However she could walk for only 10 feet before she felt weak in her legs. She has a lot of pain in her right shoulder. She stated that Tylenol does not work. She would like something stronger. OBJECTIVE: Temperature is 37.3, blood pressure is 123/71, pulse 63. Her intake and output is -417 mL yesterday. Neck with JVP 3 cm. Head and face have normal configuration. Moist mucosa. Chest: Normal expansion. Lungs: Rhonchi bilaterally. Few basilar rales. Heart: The first heart sound is diminished. Second heart sound is normal. Grade 2/6 holosystolic murmur at the apex. Abdomen: Soft, nontender. Extremities: No clubbing, cyanosis, or edema. LABORATORY: Blood tests her hemoglobin 13.8, WBC 10.6, platelet 170. Sodium 136, potassium 3.5, chloride 99, bicarb 22, BUN 16, creatinine 0.93, glucose 111. Cholesterol 123, triglycerides 61, HDL 66, LDL 45. IMPRESSION: 1. Volume overload, improving. 2. Severe three-vessel coronary artery disease, status post balloon angioplasty to the mid right coronary artery. 3. Chronic atrial fibrillation. 4. Moderate mitral and tricuspid regurgitation. 5. Obstructive sleep apnea, untreated. 6. Hypertension. 7. Hypercholesterolemia, under control. PLAN: The dose of carvedilol was decreased from 6.25 to 3.125 b.i.d. due to bradycardia. I will discontinue hydrochlorothiazide and treat her volume overload with furosemide 20 mg b.i.d. I will give her Tylenol #3 for her shoulder pain. MTDD
[2016-09-25] MEDS ORDERED: Codeine-APAP 30-300 mg Tablet PO PRN (13:05)
--- NOTE | 2016-09-25 15:39 | NUR ---
Social Work Note: Continued Discharge Planning Data& Assessment: Per MD pt is not medically ready for discharge at this time. SW met with pt at bedside to discuss discharge planning. Pt still requires SNF and she has been reviewing SNF list. Pt explained she has a preference for [facility] if [facility] cannot accept. SW requested referrals be sent to both facilities. Pt denies any other needs at this time. SW to continue to follow if any needs arise. Plan: Anticipated discharge to SNF pending acceptance when medically ready. [facility] reviewing pt. Pt denies any other needs at this time. SW to continue to follow if any needs arise. SCOTT Young
--- NOTE | 2016-09-25 16:06 | NUR ---
LOLA signed SCOTT Young
--- NOTE | 2016-09-25 18:17 | NUR ---
BP Pt's BP 115/59 this am prior to medication administration, Pt reported this to be a low BP for her, lowest BP per trends in charting, Pt scheduled to received multiple BP lowering medications, Pt denied dizziness, MD notified. Ordered to withhold Pt's am doses of lisinopril, furosemide, and carvedilol, further medication adjustments made by hospitalist and cardiac teams, Pt's subsequent BPs: 123/71 and 139/72 this shift.
[2016-09-25] MEDS ORDERED: Potassium Chloride 20 mEq SR Tablet PO SCH (20:30)
[2016-09-26 00:30] VITALS: BP 107/56; PULSE 61; RESP 16; O2SAT 92
--- NOTE | 2016-09-26 00:56 | NUR ---
Cardiac/Pain Patients BP 107/56, HR 61 A-Fib, resting in bed, no distress noted, c/o shoulder pain that was relieved with heat pack, pain 3/10 at this time, no needs at this time, urine output 575ml after 20mg Lasix IV, pleasant and cooperative, will continue to monitor. Addendum: 09/26/16 at 0116 by FLORENCIO ALMANZA RN Amended: Links added.
[2016-09-26 03:43] LABS: Mean Corpuscular Hemoglobin 30.1 pg (27.0-35.0); Mean Corpuscular Volume 90.3 fL (81-100)
[2016-09-26 05:50] VITALS: BP 124/68; PULSE 57; RESP 16; O2SAT 95
[2016-09-26 06:14] VITALS: PULSE 66
[2016-09-26 08:00] VITALS: PULSE 58
[2016-09-26] MEDS: Furosemide 10 mg/mL 2 mL Inj IV SCH (08:30)
[2016-09-26 09:23] VITALS: BP 127/69; PULSE 65; RESP 12; O2SAT 95
[2016-09-26] MEDS: Potassium Chloride 20 mEq SR Tablet PO SCH (09:28)
[2016-09-26] MEDS: [UNRECOGNIZED DRUG - OTHER] PO SCH (09:28)
--- NOTE | 2016-09-26 09:42 | PROG NOTE ---
[address] [address] PROGRESS NOTE PATIENT: JOSIANE CHRISTENSEN : 1930 MR#: [id number] ADMIT: 09/23/2016 JOB ID: [id number] DATE: 09/26/2016 SUBJECTIVE: The patient reports feeling better than yesterday. Her breathing remained the same. She feels more comfortable sitting up rather than lying down. She denies PND. She still has a lot of shoulder pain. She does not want to take Tylenol with codeine. It made her sick in the past. She would like to have a steroid injection to her shoulder. She denies any chest discomfort, or palpitation. OBJECTIVE: Temperature is 36.9. Blood pressure is 124/68. Pulse 66. Intake and output is -1,175 mL yesterday. Neck: No jugular venous distention. Chest: Normal expansion. Lungs are clear to auscultation. Heart: The first heart sound is diminished. Second heart sound is normal. Grade 1/6 holosystolic murmur at the apex. Abdomen: Soft, nontender. Extremities: No clubbing, cyanosis or edema. BLOOD TESTS: Show hemoglobin 13.4, WBC 9.5, platelet 166. Sodium 135, potassium 3.7, chloride 98, bicarbonate 24, BUN 18, creatinine 0.89, glucose 98. IMPRESSION: 1. Volume overload, resolved. 2. Severe three-vessel coronary artery disease, status post balloon angioplasty to the mid right coronary artery. 3. Chronic atrial fibrillation, rate controlled. 4. Moderate mitral and tricuspid regurgitation. 5. Obstructive sleep apnea, untreated. 6. Hypertension, under control. 7. Hypercholesterolemia, under control. PLAN: I will change furosemide IV to p.o. She will continue on potassium supplement. I believe that the patient could be discharged from the hospital from cardiac standpoint. She will follow with Dr. Joya, her primary geothermal operations manager, as an outpatient. NEELAM
--- NOTE | 2016-09-26 10:29 | NUR ---
Access and facesheet faxed to [facility] and [facility], [facility] is preference per patient. Patient will be ready for discharge today. Updated AIR EXPORT AGENT Addendum: 09/26/16 at 1042 by WILBERTO NINO CM [facility] has a bed for this patient today and will accept with Kristi to follow. Updated SCOTT and
--- NOTE | 2016-09-26 11:16 | NUR ---
Social Work: Discharge D: Pt discussed in am rounds. Pt is medically stable for discharge. Per [facility], pt has been accepted at [facility] with Dr. Berry to follow. DIRECTOR MARKETING COMMUNICATIONS met with pt with at bedside to review discharge plan and assess for any other unmet needs. Pt agrees with plan to go to [facility] today and will update her family. MD updated of accepting facility and will write d/c orders. PPW on chart. PASSR completed. A: Pt who currently ambulating 40 feet with FWW and will require skilled rehab for continued strengthening and functional mobility. P: Anticipate pt to discharge to [facility] today with Dr. Berry to follow; pt to transport via cabulance. DIRECTOR MARKETING COMMUNICATIONS will request transportation from [facility] once orders are finalized and faxed to [facility]. SCOTT Gale Addendum: 09/26/16 at 1337 by KEISHA URBAN Orders completed and faxed to [facility]. DIRECTOR MARKETING COMMUNICATIONS spoke with Sheeba Chavez, pickup time arranged for 3:00pm today; bedside RN updated.
[2016-09-26 12:09] VITALS: BP 126/73; PULSE 66; RESP 15; O2SAT 96
[2016-09-26] MEDS ORDERED: CLOP75TA28 PO (12:50)
[2016-09-26] MEDS ORDERED: FUR20 PO (12:50)
[2016-09-26] MEDS ORDERED: CARV3.122 PO (12:50)
[2016-09-26] MEDS ORDERED: LISI-567 PO ×2 (12:50→13:19)
[2016-09-26] MEDS ORDERED: POTA10TA38 PO (12:50)
[2016-09-26] MEDS ORDERED: ASPI81TA3 PO (12:50)
--- NOTE | 2016-09-26 13:13 | PCM.DIMED ---
Franklyn Tejeda DO 09/26/16 1313: Discharge Instructions Date of Service Sep 26, 2016 Dates of Hospitalization Sep 23, 2016 at 15:22 Discharge Diagnosis Discharge Diagnosis 1. acute on chronic diastolic heart failure 2. Acute Coronary Syndrome 3. Coronary Artery Disease 4. Chronic atrial fibrillation 5. Hypertension 6. Hypercholesterolemia 7. chronic right shoulder pain Medication Instructions Some changes have been made to your regular home medications including: You will no longer be taking hydrochlorothiazide also called HCTZ. Your dose of lisinopril has changed from previously 60mg daily. You are now taking lisinopril 40mg at night. Please continue to take your other regular medication as normal including: Please continue taking the Edoxaban also called Savaysa. Several new medications of also been started including: Plavix 75 mg daily for the next 6 months Furosemide also called Lasix 20mg taken in the morning Potassium chloride supplementation to be taken with furosemide Aspirin 81 mg taken in the morning with breakfast for the next 10 days ONLY Carvedilol 3.125 mg taken twice a day Diet Low fat, Low Sodium, Heart Healthy Activity Other (Determined by [facility]) Call your provider Fever or Chills, Shortness of breath, Bleeding, Chest pain, Vomitting, Excessive diarrhea, Weakness (unilateral), Other (Dizziness or lightheadedness) Patient Instructions You are now on several medications which affect your blood pressure. It is important for you to monitor your blood pressure regularly over the next week. If you notice herself becoming dizzy on standing or lightheaded at any time please have your blood pressure checked and if the systolic or top number is below 100 do not take your next dose of lisinopril and call your doctor to be evaluated. You are now on a new diuretic water pill called for furosemide or Lasix. Please monitor your body weight on the same scale daily in the morning after you empty your bladder. If you are increasing in body weight over several days and you also notice swelling in your legs you likely need to increase your dosage of Lasix. Please call your provider and discuss needing to come in to be evaluated. If you are losing weight over several days and feel thirsty more often you likely need to decrease your dosage of Lasix. And again call your primary care provider and discuss needing to come in to be evaluated. The [facility] CHF clinic should help you through this process. Please stay in contact with the CHF clinic in the future. Lastly you are on several medications which increase your bleeding risk. If you will ever fall and hit your head or notice any other unusual bleeding please seek immediate medical evaluation. Please pay attention to you bowel movements looking for bright red blood or dark tarry stool and call your doctor to be evaluated. Follow-up plan Please follow-up with your regular primary care provider within the next week for evaluation of urinary medications as well as her overall health. Please follow up with her regular training executive within the next 1-2 weeks for evaluation of your heart as well as any further changes to her medications. Please follow up with our CHF clinic for evaluation and direction in managing your diastolic heart failure. Follow-up Provider: Norman Chow MD Follow-up with PCP in: 1 week Provider: Jitendra Joya MD Follow-up in: 2 weeks CHF Clinic: 2 weeks Jere Ruiz MD 09/26/16 1451: Discharge Instructions Attending's Statement The patient was seen and examined together with Dr. Tejeda on 09/26/2016 and I agree with the history, exam and plan as outlined in the note above. . Franklyn Tejeda DO Sep 26, 2016 13:13 Jere Ruiz MD Sep 26, 2016 14:51
--- NOTE | 2016-09-26 14:22 | PCM.PNMED ---
Subjective Date of Service Sep 26, 2016 Subjective overnight: no acute events today: Patient is ready to discharge. She understands that plan. 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 Exam Vital Signs Vital Sign - Last Date Time Temp Pulse Resp B/P Pulse Ox O2 Delivery O2 Flow Rate FiO2 09/26/16 06:14 66 09/26/16 05:50 36.9 16 124/68 95 Room Air 09/25/16 04:32 2.00 Intake and Output 09/25/16 09/25/16 09/26/16 Cumulative From/Thru 15:00 23:00 07:00 09/23/16 08:04 - 09/26/16 06:25 Intake Total 100 ml 400 ml 3061 ml Output Total 875 ml 1275 ml 4400 ml Balance -775 ml -875 ml -1339 ml Intake Oral 100 ml 400 ml 1600 ml IV Total 1461 ml Output Urine Total 875 ml 1275 ml 4400 ml # Voids 2 # Bowel Movements 1 1 Exam Gen.: Alert and oriented elderly female lying in bed in no acute distress Eyes: Pupils equal round reactive to light, extraocular motion intact, anicteric sclera HENT: Normocephalic atraumatic, moist mucous membranes, mild postnasal drip noted in pharynx Neck: Supple, trachea midline, no notable JVD or adenopathy Cardiovascular: Irregularly irregular rhythm noted, systolic murmur noted at the apex consistent with mitral regurgitation Lungs: improved air movement in all [place] compared to day prior. with mild crackles in the base lung m[place]is without wheezing throughout Abdomen: Soft normoactive bowel sounds nontender to palpation no organomegaly Extremities: mild lower extremity edema, No cyanosis clubbing, pulses intact bilaterally. Radial and dorsalis pedis, right femoral cardiac cath site with small <1cm hematoma : no Siddiqui in place Neuro: Cranial nerves II through XII intact with no focal neurologic deficit noted MSK: Moves all extremities spontaneously Psych: Normal mood and affect Lab and Diagnostics Result Diagram: 09/26/1630909/26/16309 Additional Diagnostics RESULTS: CONCLUSION: 1. Diffuse severe three-vessel coronary artery disease with heavily calcification. Her coronary artery size is quite small. 2. Occluded mid circumflex artery. 3. Critical 98% stenosis of the mid right coronary artery. This was successfully treated with balloon angioplasty. 4. Left ventricular ejection fraction 60% with basal third of inferior wall severely hypokinetic. 5. 3+ mitral regurgitation. 6. LVEDP is 18 mmHg. Billy Navas MD 09/23/16 1221 Echocardiogram Report Interpretation Summary The left ventricle is normal in size. There is mildly increased wall thickness at the basal and mid levels with more hypertophy at the apical level. Consider Definity contrast to better delineate LV myocardium. Left ventricular systolic function is low normal. Left ventricular ejection fraction is estimated to be 55%, which has slightly decreased since prior study. There is hypokinesis of the basal inferior, basal to mid inferolateral, and basal anterolateral wall. LV wall motion abnormalities are new since prior study. Borderline right ventricular enlargement. Right ventricular systolic function is at the lower limits of normal which is unchanged since prior study. The right ventricular systolic pressure is estimated at 49 mmHg assuming a right atrial pressure of 15 mm Hg, which is unchanged since prior study. Both atria are severely dilated. There is moderate mitral regurgitation which is unchanged. There is moderate tricuspid regurgitation which has mildly decreased. There is no other significant valvular heart disease. The aortic root is normal size. Reading Physician:PAOLA Assessment & Plan A pleasant 86-year-old female with known coronary artery disease with history of HI in 2010 with cardiac cath and medical management only as well as paroxysmal atrial fibrillation on novel anticoagulation Edoxaban presents with new onset chest pressure with associated diaphoresis and nausea beginning in the 7a.m. 3/6 taken to cardiac matlab developer due to evolving ischemia noted in precordial lateral leads consistent with acute coronary syndrome. Hospital Day 3 1. acute on chronic diastolic heart failure, not present on admission, currently being treated - Physical exam and xray imaging consistent with volume overload - Echo report indicates mild decrease in EF to 50-55% - intravenous furosemide 20 mg twice daily started by cardiology, converted to once daily at discharge with follow up as outpatient 2. Acute Coronary Syndrome, present on admission, Treated - known three vessel disease including left anterior descending, diagonal branch , circumflex and right coronary artery from cardiac cath due to NSTEMI in 2009 - The patient was monitored in the ED with 4 separate EKG readings with evolution of ST depression in lateral precordial leads noted on final EKG prior to cardiac catheterization - Initial troponin prior to cardiac catheterization negative - Critical 98% stenosis of the mid right coronary artery. Balloon angioplasty was performed to RCA with residual 20% to 30% stenosis in the RCA. - Unsuccessful attempted balloon angioplasty to the occluded mid circumflex artery due to heavily calcified lesion. - Left ventricular angiogram demonstrated with estimated ejection fraction 60% however inferior wall is severely hypokinetic. 3+ mitral regurgitation. - will continue medical management with baby aspirin and plavix ordered per cardiology - discontinue nitroglycerin gtt per cardiology - cardiology following appreciate time and recommendations - Plavix 75mg daily for six months then switch to aspirin 81mg daily for life - cardiology recommended adding carvedilol 3.125 mg twice daily to treat her ischemic heart disease and lower her blood pressure. 3. Chronic atrial fibrillation, on chronic anticoagulation, present on admission - continue outpatient Edoxaban 60mg daily starting 09/24 4. Hypertension, present on admission, chronic stable - Continue outpatient Lisinopril and HCTZ 09/24 - cardiology recommended adding carvedilol 3.125 mg twice daily to treat her ischemic heart disease and lower her blood pressure. 5. Hypercholesterolemia, present on admission chronic stable - continue outpatient simvastatin on 09/24 6. 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 - patient previously on oxycodone 5mg as outpatient patient states that shoulder pain is improved at hospitalization - patient reports previous PT and steroid injection improved pain and function - consider ortho consult, MRI imaging for rotator cuff pathology DVT prophylaxis Anticoagulated on Edoxaban GI prophylaxis : Not indicated at this time Bowel regimen with Docusate and Senna PRN Disposition: discharge today to [facility] for rehabilitation, will follow up with PCP, cardiology and CHF clinic Pain Evaluation: Adequate Pain Control GI Prophylaxis: Not indicated VTE Prophylaxis: Other Resuscitation Status: DNR/DNI:Do Not Resuscitate/Intubate Limited Interventions: Medications and IV Fluid Attending Statement The patient was seen and examined together with Dr. Tejeda on 09/26/2016 and I agree with the history, exam and plan as outlined in the note above. . Franklyn Tejeda DO Sep 26, 2016 07:47 Jere Ruiz MD Sep 28, 2016 15:10
--- NOTE | 2016-09-26 14:28 | PCM.DC.MED ---
Discharge Summary Date of Service Sep 26, 2016 Dates of Hospitalization Date of Hospital Admission Sep 23, 2016 at 15:22 Date of Discharge: Sep 26, 2016 Providers: Admitting Physician: Jere Ruiz MD Primary Care Physician: Norman Chow MD Attending Physician: Jere Ruiz MD Diagnosis at Time of Discharge Diagnosis at Time of Discharge 1. acute on chronic diastolic heart failure 2. Acute Coronary Syndrome 3. Coronary Artery Disease 4. Chronic atrial fibrillation 5. Hypertension 6. Hypercholesterolemia 7. chronic right shoulder pain Consultations cardiology Procedures XRay, CTs & MRIs X-RAY CHEST ONE VIEW, PORTABLE IMPRESSION: No acute cardiopulmonary disease process. Dictated by: Gisell Sánchez MD, PhD on 09/23/2016 at 9:56 Approved by: Gisell Sánchez MD, PhD on 09/23/2016 at 9:57 X-RAY CHEST ONE VIEW, PORTABLE IMPRESSION: Mild edema and small effusions. Dictated by: Carlos DIAZ Interpreted: Ryann Damon MD on 09/24/2016 at 11: 03 Transcribed by: RACHELLE on 09/24/2016 at 11:03 X-RAY CHEST ONE VIEW, PORTABLE IMPRESSION: Decreasing edema. Dictated by: Calros DIAZ Interpreted: Mary Huerta MD on 09/25/2016 at 9:11 Transcribed by: ITZEL on 09/25/2016 at 9:12 Approved by: Mary Huerta M.D. on 09/25/2016 at 16:32 ECG 12 Lead evolution within first few hours in ED of worsening lateral ST depression Other Diagnostics RESULTS: CONCLUSION: 1. Diffuse severe three-vessel coronary artery disease with heavily calcification. Her coronary artery size is quite small. 2. Occluded mid circumflex artery. 3. Critical 98% stenosis of the mid right coronary artery. This was successfully treated with balloon angioplasty. 4. Left ventricular ejection fraction 60% with basal third of inferior wall severely hypokinetic. 5. 3+ mitral regurgitation. 6. LVEDP is 18 mmHg. Billy Navas MD 09/23/16 1221 Echocardiogram Report Interpretation Summary The left ventricle is normal in size. There is mildly increased wall thickness at the basal and mid levels with more hypertophy at the apical level. Consider Definity contrast to better delineate LV myocardium. Left ventricular systolic function is low normal. Left ventricular ejection fraction is estimated to be 55%, which has slightly decreased since prior study. There is hypokinesis of the basal inferior, basal to mid inferolateral, and basal anterolateral wall. LV wall motion abnormalities are new since prior study. Borderline right ventricular enlargement. Right ventricular systolic function is at the lower limits of normal which is unchanged since prior study. The right ventricular systolic pressure is estimated at 49 mmHg assuming a right atrial pressure of 15 mm Hg, which is unchanged since prior study. Both atria are severely dilated. There is moderate mitral regurgitation which is unchanged. There is moderate tricuspid regurgitation which has mildly decreased. There is no other significant valvular heart disease. The aortic root is normal size. Reading Physician:PAOLA Brief History 86yoF with known CAD with history of IA in 2009 with cardiac cath and medical management only as well as paroxysmal atrial fibrillation on novel anticoagulation Katarina presents with new onset chest pressure with associated diaphoresis and nausea beginning in the 7a.m. the patient was seen today after she was taken to the [facility]ing lab[facility] by cardiology and had a balloon angioplasty to her RCA. The patient is currently DO NOT RESUSCITATE DO NOT INTUBATE and not likely a coronary artery bypass graft candidate. The patient states that she attempted walking yesterday but returned home after approximately one block due to her chest not feeling right. She reports recent shortness of breath on exertion. She states she also has a cough and runny nose but is otherwise free of fever or chills sore throat or sputum. Hospital Course 1. Acute Coronary Syndrome, present on admission, Treated - known three vessel disease including left anterior descending, diagonal branch , circumflex and right coronary artery from cardiac cath due to NSTEMI in 2009 - The patient was monitored in the ED with 4 separate EKG readings with evolution of ST depression in lateral precordial leads noted on final EKG prior to cardiac catheterization - Initial troponin prior to cardiac catheterization negative - Critical 98% stenosis of the mid right coronary artery. Balloon angioplasty was performed to RCA with residual 20% to 30% stenosis in the RCA. - Unsuccessful attempted balloon angioplasty to the occluded mid circumflex artery due to heavily calcified lesion. - Left ventricular angiogram demonstrated with estimated ejection fraction 60% however inferior wall is severely hypokinetic. 3+ mitral regurgitation. - will continue medical management with baby aspirin and plavix ordered per cardiology - discontinue nitroglycerin gtt per cardiology - cardiology following appreciate time and recommendations - Plavix 75mg daily for six months then switch to aspirin 81mg daily for life - cardiology recommended adding carvedilol 3.125 mg twice daily to treat her ischemic heart disease and lower her blood pressure. 2. acute on chronic diastolic heart failure, not present on admission, currently being treated - Physical exam and xray imaging consistent with volume overload - Echo report indicates mild decrease in EF to 50-55% - intravenous furosemide 20 mg twice daily started by cardiology, converted to once daily at discharge with follow up as outpatient 3. Chronic atrial fibrillation, on chronic anticoagulation, present on admission - continue outpatient Edoxaban 60mg daily starting 09/24 4. Hypertension, present on admission, chronic stable - Continue outpatient Lisinopril and HCTZ 09/24 - cardiology recommended adding carvedilol 3.125 mg twice daily to treat her ischemic heart disease and lower her blood pressure. 5. Hypercholesterolemia, present on admission chronic stable - continue outpatient simvastatin on 09/24 6. 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 - patient previously on oxycodone 5mg as outpatient patient states that shoulder pain is improved at hospitalization - patient reports previous PT and steroid injection improved pain and function - consider ortho consult, MRI imaging for rotator cuff pathology DVT prophylaxis Anticoagulated on Edoxaban GI prophylaxis : Not indicated at this time Bowel regimen with Docusate and Senna PRN Exam Vital Signs (Last) Date Time Temp Pulse Resp B/P Pulse Ox O2 Delivery O2 Flow Rate FiO2 09/26/16 12:09 36.9 66 15 126/73 96 Room Air 09/25/16 04:32 2.00 Exam Gen.: Alert and oriented elderly female lying in bed in no acute distress Eyes: Pupils equal round reactive to light, extraocular motion intact, anicteric sclera HENT: Normocephalic atraumatic, moist mucous membranes, mild postnasal drip noted in pharynx Neck: Supple, trachea midline, no notable JVD or adenopathy Cardiovascular: Irregularly irregular rhythm noted, systolic murmur noted at the apex consistent with mitral regurgitation Lungs: improved air movement in all mcginnis compared to day prior. with mild crackles in the base lung m[place]innis without wheezing throughout Abdomen: Soft normoactive bowel sounds nontender to palpation no organomegaly Extremities: mild lower extremity edema, No cyanosis clubbing, pulses intact bilaterally. Radial and dorsalis pedis, right femoral cardiac cath site with small <1cm hematoma : no Siddiqui in place Neuro: Cranial nerves II through XII intact with no focal neurologic deficit noted MSK: Moves all extremities spontaneously Psych: Normal mood and affect Test 09/23/16 07:55 09/25/16 04:05 09/26/16 03:10 Neutrophils (%) (Auto) 44.7% (40-74) Lymphocytes (%) (Auto) 41.8% (14-46) Monocytes (%) (Auto) 11.6% (4-12) Eosinophils (%) (Auto) 1.4% (0-5) Basophils (%) (Auto) 0.4% (0-3) Total Bilirubin 1.1mg/dL (0.0-1.2) Aspartate Amino Transf (AST/SGOT) 34U/L (0-50) Alanine Aminotransferase (ALT/SGPT) 27U/L (0-32) Alkaline Phosphatase 100U/L (25-165) Troponin T 0.010ug/L (0.0-0.011) Pro-B-Type Natriuretic Peptide 1892pg/mL (0-738) Total Protein 7.6g/dL (6.4-8.4) Albumin 4.4g/dL (3.4-5.0) Activated Partial Thromboplast Time 35.2sec (22.8-33.0) Hemoglobin A1c 5.6% (4.8-5.6) Phosphorus Level 3.3mg/dL (2.5-4.9) Triglycerides Level 61mg/dL (0-149) Cholesterol Level 123mg/dL (100-199) LDL Cholesterol, Calculated 44.800mg/dL (0-99) VLDL Cholesterol 12.200mg/dL HDL Cholesterol 66mg/dL (>39) Cholesterol/HDL Ratio 1.86 (0.0-4.4) White Blood Count 9.5th/mm3 (3.8-10.1) Red Blood Count 4.45mil/mm3 (3.90-5.20) Hemoglobin 13.4g/dL (12.0-15.6) Hematocrit 40.2% (35.0-46.0) Mean Corpuscular Volume 90.3fL (81-100) Mean Corpuscular Hemoglobin 30.1pg (27.0-35.0) Mean Corpuscular Hemoglobin Concent 33.3% (32.0-37.0) Red Cell Distribution Width 13.5% (12.3-15.4) Platelet Count 166bil/L (150-400) Sodium Level 135mEq/L (134-144) Potassium Level 3.7mEq/L (3.5-5.2) Chloride Level 98mEq/L (97-108) Carbon Dioxide Level 24mmol/L (18-29) Blood Urea Nitrogen 18mg/dL (8-27) Creatinine 0.89mg/dL (0.57-1.00) Estimat Glomerular Filtration Rate 87mL/min (>59) Glucose Level 98mg/dL (60-99) Calcium Level 8.4mg/dL (8.5-10.1) Magnesium Level 2.1mg/dL (1.6-2.6) Discharge Medications Discharge Medications Aspirin Chew (Aspirin Chew) 81 Mg Chew 81 MG PO DAILY Prescribed by: GUSTAVO DIMAS DO Carvedilol (Carvedilol) 3.125 Mg Tablet 3.125 MG PO BID Prescribed by: GUSTAVO DIMAS DO Clopidogrel (Clopidogrel) 75 Mg Tablet 75 MG PO DAILY Prescribed by: GUSTAVO DIMAS DO Edoxaban Tosylate (Savaysa) 60 Mg Tablet 60 MG PO DAILY (Reported) Furosemide (Furosemide) 20 Mg Tab 20 MG PO MORNING Prescribed by: GUSTAVO DIMAS DO Lisinopril (Lisinopril) 20 Mg Tablet 40 MG PO HS Prescribed by: GUSTAVO DIMAS DO [place]-3 Fatty Acids ([place]-3) 1,000 Mg Capsule 1,000 MG PO DAILY (Reported) Potassium Chloride (Potassium Chloride) 10 Meq Tab.er.prt 10 MEQ PO DAILY TAKE WITH FOOD Prescribed by: GUSTAVO DIMAS DO Simvastatin (Simvastatin) 40 Mg Tablet 20 MG PO HS (Reported) Vit C/Vit E/Lutein/Min/[place]-3 (Ocuvite Softgel) 1 Each Capsule 1 EACH PO DAILY (Reported) Additional med instructions Some changes have been made to your regular home medications including: You will no longer be taking hydrochlorothiazide also called HCTZ. Your dose of lisinopril has changed from previously 60mg daily. You are now taking lisinopril 40mg at night. Please continue to take your other regular medication as normal including: Please continue taking the Edoxaban also called Savaysa. Several new medications of also been started including: Plavix 75 mg daily for the next 6 months Furosemide also called Lasix 20mg taken in the morning Potassium chloride supplementation to be taken with furosemide Aspirin 81 mg taken in the morning with breakfast for the next 10 days ONLY Carvedilol 3.125 mg taken twice a day Followup Plan Disposition: to [facility] Follow-up plan Please follow-up with your regular primary care provider within the next week for evaluation of urinary medications as well as her overall health. Please follow up with her regular tongue and quarter stitcher within the next 1-2 weeks for evaluation of your heart as well as any further changes to her medications. Please follow up with our CHF clinic for evaluation and direction in managing your diastolic heart failure. Discharge Diet: Low fat, Low Sodium, Heart Healthy Discharge Activity: Other (Determined by [facility]) Patient Instructions You are now on several medications which affect your blood pressure. It is important for you to monitor your blood pressure regularly over the next week. If you notice herself becoming dizzy on standing or lightheaded at any time please have your blood pressure checked and if the systolic or top number is below 100 do not take your next dose of lisinopril and call your doctor to be evaluated. You are now on a new diuretic water pill called for furosemide or Lasix. Please monitor your body weight on the same scale daily in the morning after you empty your bladder. If you are increasing in body weight over several days and you also notice swelling in your legs you likely need to increase your dosage of Lasix. Please call your provider and discuss needing to come in to be evaluated. If you are losing weight over several days and feel thirsty more often you likely need to decrease your dosage of Lasix. And again call your primary care provider and discuss needing to come in to be evaluated. The [facility] CHF clinic should help you through this process. Please stay in contact with the CHF clinic in the future. Lastly you are on several medications which increase your bleeding risk. If you will ever fall and hit your head or notice any other unusual bleeding please seek immediate medical evaluation. Please pay attention to you bowel movements looking for bright red blood or dark tarry stool and call your doctor to be evaluated. Follow-up Provider: Norman Chow MD Follow-up with PCP in: 1 week Provider: Jitendra Joya MD Follow-up in: 2 weeks CHF Clinic: 2 weeks Time spent Greater than 30 minutes was spent in preparation of discharge with greater than 50% of that time dedicated to patient counseling and coordination of care. . Attending Statement The patient was seen and examined together with Dr. Dimas on 09/26/2016 and I agree with the history, exam and plan as outlined in the note above. . copies to: Norman Chow MD, Nicholas K DO Sep 26, 2016 14:26 Jere Ruiz MD Sep 28, 2016 15:11
--- NOTE | 2016-09-26 16:29 | NUR ---
Discharge Pt discharged to [facility] at ~1500 today after doing report with receiving RN at facility named [facility]. Pt's IV access D/C'd and intact. All of Pt's belongings accompanied Pt at time of discharge including home medication savaysa.
== END 2016-09-26 14:40 | DRG 250 ==
LOC: SED 07:58 → SPI 10:43 → PCC 15:22
PROVIDERS: ADMIT Internal Medicine; ATTEND Internal Medicine
PROC: 02703ZZ Dilation of Coronary Artery, One Artery, Percutaneous Approach (ICD-10-PCS; principal; 2016-09-23)
PROC: 4A023N7 Measurement of Cardiac Sampling and Pressure, Left Heart, Percutaneous Approach (ICD-10-PCS; 2016-09-23)
PROC: B2111ZZ Fluoroscopy of Multiple Coronary Arteries using Low Osmolar Contrast (ICD-10-PCS; 2016-09-23)
PROC: B2151ZZ Fluoroscopy of Left Heart using Low Osmolar Contrast (ICD-10-PCS; 2016-09-23)
DX: I25.119 Atherosclerotic heart disease of native coronary artery with unspecified angina pectoris (principal); I50.33 Acute on chronic diastolic (congestive) heart failure; I25.2 Old myocardial infarction; Z66 Do not resuscitate; I10 Essential (primary) hypertension; E78.5 Hyperlipidemia, unspecified; Z87.891 Personal history of nicotine dependence; I48.2 Chronic atrial fibrillation; Z79.01 Long term (current) use of anticoagulants; Z77.22 Contact with and (suspected) exposure to environmental tobacco smoke (acute) (chronic); M48.02 Spinal stenosis, cervical region